=== PATIENT | female | born 1960 | race Caucasian/White ===

== ENCOUNTER 2017-07-17 11:01 | Day surgery (SDC) | payer OTHER ==
[2017-07-17] MEDS ORDERED: PROPOFOL 20 ML ×2 (12:51→14:03)
== END 2017-07-17 15:07 | disposition home or self-care (01) ==
LOC: GIL 11:01
DX: Z12.11 Encounter for screening for malignant neoplasm of colon (principal); K57.90 Diverticulosis of intestine, part unspecified, without perforation or abscess without bleeding; K64.8 Other hemorrhoids
CPT/HCPCS: 45378

== ENCOUNTER 2017-10-03 10:55 | Day surgery (SDC) | payer OTHER ==
[~2017-10-03 10:55] MED LIST: LIDOCAINE 2% (SDV) 5 ML INJ
[2017-10-03] MEDS ORDERED: CEFAZOLIN 2 GM/50 ML (PMX) 50 ML IVPB (12:30)
[2017-10-03] MEDS ORDERED: metroNIDAZOLE 500 MG/NS (PMX) 100 ML IVPB (12:30)
[2017-10-03] MEDS ORDERED: LACTATED RINGER'S 1,000 ML IV* (12:30)
[2017-10-03] MEDS ORDERED: BUPIVACAINE 0.5% (SDV) 30 ML INJ (13:14)
[2017-10-03] MEDS ORDERED: LIDOCAINE 1% (MPF) 30 ML INJ (13:14)
[2017-10-03] MEDS ORDERED: PROPOFOL 20 ML (13:19)
[2017-10-03] MEDS ORDERED: ROCURONIUM 50 MG INJ (13:25)
[2017-10-03] MEDS: LIDOCAINE 1% (MPF) 30 ML INJ INJ (13:30)
[2017-10-03] MEDS: BUPIVACAINE 0.5%/EPI (SDV) 30 ML INJ INJ (13:30)
[2017-10-03] MEDS ORDERED: BUPIVACAINE 0.5%/EPI (SDV) 30 ML INJ (13:40)
[2017-10-03] MEDS ORDERED: ONDANSETRON 4 MG INJ (14:02)
[2017-10-03] MEDS ORDERED: DEXAMETHASONE 4 MG/ML 1 ML INJ (14:02)
[2017-10-03] MEDS ORDERED: SUGAMMADEX SODIUM 200 MG/2 ML VIAL IV (14:03)
[2017-10-03] MEDS ORDERED: METOCLOPRAMIDE 10 MG INJ (14:22)
[2017-10-03] MEDS ORDERED: HYDROmorphONE 1 MG/ML SYG (14:29)
[2017-10-03] MEDS ORDERED: EPHEDrine SULFATE 50 MG/5 ML SYG IV (14:30)
[2017-10-03] MEDS ORDERED: FENTAnyl 50 MCG/ML VIAL (14:30)
[2017-10-03] MEDS ORDERED: FENTAnyl 50 MCG/ML VIAL IV ×2 (14:30)
[2017-10-03] MEDS ORDERED: ONDANSETRON 4 MG INJ IV (14:30)
[2017-10-03] MEDS ORDERED: DIPHENHYDRAMINE 50 MG INJ IV (14:30)
[2017-10-03] MEDS ORDERED: MIDAZOLAM 1 MG/ML 2 ML INJ IV (14:30)
[2017-10-03] MEDS ORDERED: OXYCODONE/ACETAMINOPHEN (5/325) TAB PO ×2 (14:30)
[2017-10-03] MEDS ORDERED: hydrALAzine 20 MG INJ IV (14:30)
[2017-10-03] MEDS ORDERED: LABETALOL HCL 20MG INJ IV (14:30)
[2017-10-03] MEDS ORDERED: KETOROLAC 30 MG INJ IV (14:30)
[2017-10-03] MEDS ORDERED: ALBUTEROL 0.083% (NEB) 2.5 MG/3 ML AMP HHN (14:30)
[2017-10-03] MEDS ORDERED: HYDROmorphONE 1 MG/5 ML IV SYRINGE IV ×2 (14:30)
[2017-10-03] MEDS ORDERED: MEPERIDINE 25 MG INJ IV (14:30)
[2017-10-03] MEDS: FENTAnyl 50 MCG/ML VIAL IV (14:31)
[2017-10-03] MEDS: METOCLOPRAMIDE 10 MG INJ IV (14:31)
== END 2017-10-03 16:00 | disposition home or self-care (01) ==
LOC: SDS 10:55
DX: K60.3 Anal fistula (principal)
CPT/HCPCS: 45300

== ENCOUNTER 2017-12-06 07:57 | Day surgery (SDC) | payer OTHER ==
[~2017-12-06 07:57] MED LIST changes: +CEFAZOLIN 1 GM INJ; +CEFAZOLIN 2 GM/50 ML (PMX) 50 ML IVPB; +LACTATED RINGER'S 1,000 ML (ENTER RATE) IV*; -LIDOCAINE 2% (SDV) 5 ML INJ; +METOCLOPRAMIDE 10 MG INJ; +Metronidazole 500 MG in NS 100 ML IVPB; +metroNIDAZOLE 500 MG/100 ML NS IVPB
[2017-12-06 09:06] LABS: ADD MAN DIFF? NO
[2017-12-06 09:16] LABS: WHITE BLOOD COUNT 7.7 10^3/ul (4.8-10.8)
[2017-12-06 09:16] LABS: BASOPHILS % 0.4 % (0.0-2.0); EOSINOPHILS # 0.2 10^3/ul (0.0-0.5); EOSINOPHILS % 1.9 % (0.0-7.0); HEMATOCRIT 40.1 % (37.0-47.0); HEMOGLOBIN 13.2 g/dl (12.0-16.0); LYMPHOCYTES # 1.7 10^3/ul (0.8-2.9); LYMPHOCYTES % 22.3 % (15.0-51.0); MEAN CORPUSCULAR HEMOGLOBIN 29.7 pg (29.0-33.0); MEAN CORPUSCULAR HGB CONC 32.9 g/dl (32.0-37.0); MEAN CORPUSCULAR VOLUME 90.1 fl (82.0-101.0); MEAN PLATELET VOLUME 11.8 fl (7.4-10.4); MONOCYTE # 0.4 10^3/ul (0.3-0.9); MONOCYTES % 5.7 % (0.0-11.0); NEUTROPHIL # 5.4 10^3/ul (1.6-7.5); NEUTROPHILS % 69.4 % (39.0-77.0); PLATELET COUNT 271 10^3/UL (140-415); RED BLOOD COUNT 4.45 10^6/ul (4.20-5.40); RED CELL DISTRIBUTION WIDTH 12.7 % (11.5-14.5)
[2017-12-06] MEDS ORDERED: FENTAnyl 50 MCG/ML VIAL (09:25)
[2017-12-06] MEDS ORDERED: MIDAZOLAM 1 MG/ML 2 ML INJ (09:26)
[2017-12-06] MEDS ORDERED: ONDANSETRON 4 MG INJ (09:26)
[2017-12-06] MEDS ORDERED: LIDOCAINE 2% (SDV) 5 ML INJ (09:26)
[2017-12-06] MEDS ORDERED: PROPOFOL 20 ML (09:26)
[2017-12-06 09:31] LABS: ALANINE AMINOTRANSFERASE 32 IU/L (13-69); ALBUMIN 4.1 g/dl (3.3-4.9); ALKALINE PHOSPHATASE 115 IU/L (42-121); ANION GAP 6 (5-13); ASPARTATE AMINO TRANSFERASE 37 IU/L (15-46); BILIRUBIN,INDIRECT 0.8 mg/dl (0-1.1); BILIRUBIN,TOTAL 0.8 mg/dl (0.2-1.3); BLOOD UREA NITROGEN 14 mg/dl (7-20); CALCIUM 9.7 mg/dl (8.4-10.2); CARBON DIOXIDE 31 mmol/L (21-31); CHLORIDE 106 mmol/L (97-110); CREATININE 0.57 mg/dl (0.44-1.00); GLUCOSE 109 mg/dl (70-220); POTASSIUM 3.9 mmol/L (3.5-5.1); SODIUM 143 mmol/L (135-144); TOTAL PROTEIN 7.8 g/dl (6.1-8.1)
[2017-12-06 09:32] LABS: INR 0.92; PROTIME 12.4 Sec (11.9-14.9)
[2017-12-06 09:33] LABS: PARTIAL THROMBOPLASTIN TIME 29.3 Sec (23.0-35.0)
[2017-12-06] MEDS ORDERED: DIPHENHYDRAMINE 50 MG INJ IV (10:00)
[2017-12-06] MEDS ORDERED: hydrALAzine 20 MG INJ IV (10:00)
[2017-12-06] MEDS ORDERED: ONDANSETRON 4 MG INJ IV (10:00)
[2017-12-06] MEDS ORDERED: HYDROmorphONE 1 MG/5 ML IV SYRINGE IV ×2 (10:00)
[2017-12-06] MEDS ORDERED: LEVALBUTEROL (NEB) 1.25 MG/0.5 ML AMP HHN (10:00)
[2017-12-06] MEDS ORDERED: FENTAnyl 50 MCG/ML VIAL IV ×2 (10:00)
[2017-12-06] MEDS ORDERED: KETOROLAC 30 MG INJ IV (10:00)
[2017-12-06] MEDS ORDERED: MEPERIDINE 25 MG INJ IV (10:00)
[2017-12-06] MEDS ORDERED: LABETALOL HCL 20MG INJ IV (10:00)
[2017-12-06] MEDS ORDERED: IPRATROPIUM (NEB) 0.5 MG/2.5 ML AMP HHN (10:00)
[2017-12-06] MEDS: BUPIVACAINE 0.5%/EPI (SDV) 30 ML INJ (11:28)
[2017-12-06] MEDS: LIDOCAINE 0.5% (MDV) 50 ML INJ (11:29)
[2017-12-06] MEDS: HYDROmorphONE 1 MG/5 ML IV SYRINGE IV ×2 (11:33→11:48)
== END 2017-12-06 13:50 | disposition home or self-care (01) ==
LOC: SDS 07:57
DX: K60.3 Anal fistula (principal)
CPT/HCPCS: 46270; 80053; 85025; 85610; 85730; 88304

== ENCOUNTER 2018-05-05 08:02 | Emergency (ER) | payer OTHER ==
[2018-05-05] MEDS: KETOROLAC 60 MG INJ IM (08:34)
== END 2018-05-05 11:10 | disposition home or self-care (01) ==
LOC: FTE 08:02
DX: M25.562 Pain in left knee (principal)
CPT/HCPCS: 73562; 96372; 99284-25

== ENCOUNTER → 2018-11-01 | Emergency (ER) | payer OTHER ==
[2018-11-01] MEDS: DEXAMETHASONE 10 MG/ML 1 ML INJ IM (06:44)
[2018-11-01] MEDS: ALBUTEROL 0.083% (NEB) 2.5 MG/3 ML AMP HHN (07:03)
[2018-11-01] MEDS: IPRATROPIUM (NEB) 0.5 MG/2.5 ML AMP HHN (07:04)
== END | disposition home or self-care (01) ==
LOC: FTE 06:26
DX: J45.901 Unspecified asthma with (acute) exacerbation (principal)
CPT/HCPCS: 71045; 94644; 96372; 99284-25